=== PATIENT | female | born 1955 | race Caucasian/White ===

== ENCOUNTER 2017-01-27 19:23 | Emergency (ER) | payer OTHER ==
[~2017-01-27] VITALS: Ht 165.1 cm; Wt 77.1 kg
[~2017-01-27 19:23] MED LIST: AMLO5TAB8; COSAMIN DS; DICL50TA3 PO; LISI20TA2 PO; METO50TA10 PO; PRED10TA5 PO
[2017-01-27 19:35] VITALS: BP 167/77
--- NOTE | 2017-01-27 19:50 | NUR ---
AMBULATED TO ER BE 1
--- NOTE | 2017-01-27 19:51 | NUR ---
61 Y/O F W/C/O R LOWER BACK PAIN SINCE 2 DAYS AGO. PT DENIES ANY INJURY, OR PAINFUL URINATION BUT STATES SHE HAS NOTED FREQUENT URINATION WELL. NO OTHER S/S OF DISTRESS NOTED AT THE MOMENT. ER MADE AWARE.
--- NOTE | 2017-01-27 21:14 | NUR ---
PT BACK FROM X-RAY, RESTING IN BED, AWATING FOR RESULTS. NO S/S OF DISTRESS NOTED AT THE MOMENT.
[2017-01-27] MEDS ORDERED: KETOROLAC 60 MG/2 ML VIAL IM ONE (21:15)
[2017-01-27 21:45] VITALS: BP 149/78
--- NOTE | 2017-01-27 21:45 | NUR ---
Patient discharged with v/s stable. Written and verbal after care instructions given and explained. Patient alert, oriented and verbalized understanding of instructions. Ambulatory with steady gait. All questions addressed prior to discharge. ID band removed. Patient advised to follow up with PMD OR RETURN TO ER IF CONDITION WORSENS. Rx of MOTRIN 800MG given. Patient educated on indication of medication including possible reaction and side effects. Opportunity to ask questions provided and answered.
== END 2017-01-27 21:45 | disposition home or self-care (01) ==
LOC: MED 19:23
DX: M54.5 Low back pain (principal); I10 Essential (primary) hypertension; M06.80 Other specified rheumatoid arthritis, unspecified site; Z79.899 Other long term (current) drug therapy
CPT/HCPCS: 72100; 81002; 81025; 96372; 99284; J1885